=== PATIENT | female | born 1995 | race Asian ===

== ENCOUNTER 2022-11-22 10:21 | Outpatient (NON) | payer OTHER, SELFPAY | END 2022-11-22 10:22 | disposition home or self-care (01) | LOC: ANHLAB 11-23 10:26 | PROVIDERS: PCP Pediatrics; Visit Provider Nurse Practitioner | DX: D23.21 Other benign neoplasm of skin of right ear and external auricular canal (principal) | CPT/HCPCS: 88305 ==

== ENCOUNTER 2024-10-19 10:01 | Outpatient (CLI) | payer OTHER, SELFPAY ==
--- NOTE | ~2024-10-19 | US_ITS ---
Limited Abdominal Sonogram: Real-time sonographic imaging of the right upper quadrant was performed. Clinical History: Right upper quadrant pain Findings: The liver appears normal with no evidence of mass lesion or bile duct dilatation. Main por gilles vein demonstrates normal direction of flow. The gallbladder is well distended, and appears normal with no evidence of gallstone or wall thickening. The common bile duct measures 4 mm. The visualize d pancreas, aorta, and IVC are unremarkable. Impression: No significant abnormality seen. Reviewed, dictated and finalized at location M. Impression: No significant abnormality seen.
== END 2024-10-19 10:02 | disposition home or self-care (01) ==
PROVIDERS: PCP Surgery; Visit Provider Surgery
DX: R10.11 Right upper quadrant pain (principal)
CPT/HCPCS: 76705